=== PATIENT | female | born 1940 | race Caucasian/White ===

== ENCOUNTER 2017-01-28 08:04 | Observation (INO) | payer OTHER ==
[~2017-01-28] VITALS: Ht 152.4 cm; Wt 51.6 kg
--- NOTE | ~2017-01-28 | P ---
[facility] [place] [address] PROCEDURE REPORT Name: DALTON RIVERS Room #: 202-P [facility] Yanely Neff#: [id number] Admission: 01/28/17 Attend Phys: Robert Rosario MD Discharge: 01/29/17 Date of : 40 Report #: [id number] THIS REPORT FOR: //name// CC: FAM unknown Goran Rosario DATE OF SERVICE: 01/28/2017 PREOPERATIVE DIAGNOSIS: Nonischemic cardiomyopathy. POSTOPERATIVE DIAGNOSIS: Nonischemic cardiomyopathy. HISTORY OF PRESENT ILLNESS: The patient is a 76-year-old with a longstanding history of a nonischemic cardiomyopathy likely secondary to chemotherapy for breast cancer. She has class 2 heart failure symptoms and a left bundle-branch block. She is here for biventricular ICD implantation. ANESTHESIA: The patient with MAC anesthesia with no anesthesia-related complications. DESCRIPTION OF PROCEDURE: The patient underwent informed consent. We discussed the details of the procedure including the risks, which include but not limited to bleeding, infection, vascular damage, cardiac perforation, pneumothorax. She understood these risks and is willing to proceed. She was brought to the EP laboratory in fasting and sedated state, prepped and draped in sterile fashion underwent venogram showing patency of the left axillary vein and she received IV antibiotics prior to the initiation of the procedure. Next, I injected 20 mL of lidocaine below the level of left clavicle, incision was made. Pocket was created in prepectoral fashion. Access was obtained 3 times to the left axillary vein using extrathoracic approach sheaths were positioned using the modified Seldinger technique. Next, a lead was placed into the right atrial appendage and right ventricular apex, both with adequate pacing and sensing thresholds. This was done under fluoroscopy. The leads were sutured to the prepectoral fascia. Next, a short sheath was placed into the axillary vein and the coronary sinus sheath was placed into the right atrium. Of note, I initially subselected the middle cardiac vein and I could see that there was a CS proper that was quite vertical. I tried using an inner 90 degree sheath to engage this, but this was unsuccessful. I therefore was able to obtain access once again with my Wholey wire. However, I could not advance the sheath into the coronary sinus. As such, I removed the Wholey wire and placed a 5-Greek diagnostic EP catheter via the sheath into the CS proper. This gave me enough support to advance my sheath into the coronary sinus proper. Next, I performed a venogram of the coronary sinus and showed that there was a [facility] [address] [place] [address] PROCEDURE REPORT Name: [facility] Room #: 202-P [facility] Yanely MOrlandoR.#: [id number] Admission: 01/28/17 Attend Phys: Robert Rosario MD Discharge: 01/29/17 Date of : 40 Report #: [id number] nice posterolateral branch. This again was somewhat challenging to advance the lead into. I used a senior civil engineer wire and this again allowed me to advance my lead into the vessel. I split the sheath and the lead remained in position with adequate pacing thresholds. The lead was sutured to the prepectoral fascia. The device was connected to the leads and the pocket was irrigated with vancomycin solution. The pocket was closed in 3 layers and surgical glue was placed to the outer skin layer. The patient awoke neurologically and hemodynamically intact. No complications and no significant bleeding. Implanted device was a [employer] model # [id number], serial #[id number] with an atrial lead that was [employer], model #2088TC, 46 cm, serial #[id number]. The atrial lead demonstrated a P-wave at 2.3 millivolts, pacing impedance of 595 ohms, the pacing threshold 1.1 volt at 0.5 milliseconds. The RV lead was a [employer] model #7122Q, 52 cm. This was a single coil lead. The serial number was [id number]. This lead demonstrated an R-wave of 10.2 millivolts, pacing impedance of 614 ohms, the pacing threshold of 0.75 volts at 0.5 milliseconds. The LV lead was a [employer] model #1458Q, 86 cm. This was a quadripolar lead, serial #[id number]. This lead demonstrated a pacing impedance of 830 ohms, the pacing threshold was 0.75 volts at 0.5 milliseconds. This was in the D1-M2 pacing configuration also known as vector 1. This allowed for the most basal pacing configuration with the best pacing threshold and when BiV optimized, this resulted in the most narrowing of the QRS complex from 160-170 milliseconds down to 120 milliseconds. The device was programmed to the DDD 60-120 mode. The VT zone was set at 180-220 with 3 rounds of burst followed by 3 rounds of ramp followed by max output shocks. The VF zone was set at greater than 220 beats per minute with ATP while charging followed by max output shocks. CONCLUSIONS: 1. Successful Bi-V ICD implantation. 2. Satisfactory atrial, right ventricular and left ventricular pacing and sensing thresholds. <ELECTRONICALLY SIGNED> By: Robert Rosario MD 01/31/17 1105 1241 192 Robert Rosario MD /neema
--- NOTE | ~2017-01-28 | D ---
[facility] [place] [address] DISCHARGE SUMMARY Name: DALTON RIVERS Room #: 202-P [facility] Yanely Neff#: [id number] Admission: 01/28/17 Attend Phys: Robert Rosario MD Discharge: 01/29/17 Date of : 40 Report #: [id number] THIS REPORT FOR: //name// CC: FAM unknown Goran Rosario DISCHARGE DIAGNOSIS: Nonischemic cardiomyopathy. PROCEDURES PERFORMED: Bi-V ICD implantation. HISTORY: The patient is a 76-year-old with a history of a nonischemic cardiomyopathy and left bundle branch block. Her nonischemic cardiomyopathy is thought to be secondary to prior chemotherapy for breast cancer. She has class 2 heart failure symptoms. She is here for elective Bi-V ICD implantation for primary prevention of sudden cardiac . Her Bi-V ICD implantation was straightforward and without incident and she was monitored in the hospital overnight. HOSPITAL COURSE: The patient was monitored overnight. There were no issues. The following day, chest x-ray showed stable lead position with no pneumothorax. A device interrogation showed stable device functions. Her incision looked to be healing nicely with some mild bruising. She denied any chest pain or shortness of breath. She denied any PND or orthopnea. PHYSICAL EXAMINATION: VITAL SIGNS: Stable. GENERAL: No acute distress. CARDIOVASCULAR: Regular rate and rhythm. LUNGS: Clear bilaterally. ABDOMEN: Soft, nontender. EXTREMITIES: No edema and her incision showed some mild ecchymosis, but no hematoma. As such, she was deemed stable for discharge to home with discharge instructions reviewed. She is to continue on her same home medications and follow up for an incision check in 7-10 days. <ELECTRONICALLY SIGNED> By: Robert Rosario MD 01/31/17 1105 0819 0829 Robert Rosario MD /nt
[2017-01-28] MEDS ORDERED: OMEPRAZOLE 20 M20 M1 PO (08:20)
[2017-01-28] MEDS ORDERED: PULMICORT FLE180 MCG IH (08:21)
[2017-01-28] MEDS ORDERED: NASONEX17 GM NASAL (08:22)
[2017-01-28] MEDS ORDERED: DYMISTA NASAL S23 GM NS (08:24)
[2017-01-28] MEDS ORDERED: PRAVACHOL 20 MG20 M1 PO (08:25)
[2017-01-28] MEDS ORDERED: ALDACTONE25 MG PO (08:25)
[2017-01-28] MEDS ORDERED: COREG6.25 MG PO (08:25)
[2017-01-28] MEDS ORDERED: XOPENEX HF1 UDINHALE IH (08:26)
[2017-01-28] MEDS ORDERED: MUCINEX TA600 MG/TA2 PO (08:27)
[2017-01-28] MEDS ORDERED: ALLEGRA ALLERG180 MG PO (08:27)
[2017-01-28] MEDS ORDERED: FLONASE 0.05%50 MCG NASAL (08:29)
[2017-01-28 08:44] VITALS: BP 125/55
[2017-01-28 08:46] LABS: ABSOLUTE NEUTROPHILS 4.3 thou/uL (1.4-8.2); BASOPHILS 1.2 % (0.0-2.0); EOSINOPHILS 2.1 % (0.0-3.0); HEMATOCRIT 44.2 % (37.0-47.0); HEMOGLOBIN 14.7 gm/dL (12.0-15.0); LYMPHOCYTES 29.8 % (24.0-44.0); MANUAL DIFF NO; MCHC 33.3 g/dL (28.0-37.0); MCV 87.2 fL (80.0-100.0); MONOCYTES 6.6 % (1.0-8.0); PLATELET COUNT 205 thou/uL (150-400); POLYS 60.3 % (36.0-66.0); RBC 5.07 mil/uL (4.20-5.00); RDW 14.3 % (10.5-14.5); WBC 7.2 thou/uL (4.0-11.0)
[2017-01-28 08:54] LABS: CALCIUM 9.4 mg/dL (8.5-10.1); CREATININE 0.8 mg/dL (0.6-1.0); POTASSIUM 3.7 mmol/L (3.5-5.1)
[2017-01-28 08:59] LABS: PROTIME 9.9 Seconds (9.3-11.4)
[2017-01-28 09:00] LABS: ALBUMIN 3.9 g/dL (3.4-5.0); TOTAL BILIRUBIN 0.6 mg/dL (<0.1-1.0); TOTAL PROTEIN 6.8 g/dL (6.4-8.2)
[2017-01-28 16:15] VITALS: BP 121/56
[2017-01-28 19:36] VITALS: BP 104/46
[2017-01-28 23:33] VITALS: BP 101/49
[2017-01-29 03:39] VITALS: BP 101/45
[2017-01-29 08:52] VITALS: BP 101/45
== END 2017-01-29 10:24 | disposition home or self-care (01) ==
LOC: CATH 08:04 → 2N 13:44
PROVIDERS: Internal Medicine Cardiovascular Disease
DX: I42.9 Cardiomyopathy, unspecified (principal); I44.7 Left bundle-branch block, unspecified; R55 Syncope and collapse; I47.2 Ventricular tachycardia; I50.22 Chronic systolic (congestive) heart failure; E78.5 Hyperlipidemia, unspecified

== ENCOUNTER 2017-02-02 15:29 | Observation (INO) | payer OTHER ==
[~2017-02-02] VITALS: Ht 152.4 cm; Wt 44.9 kg
--- NOTE | ~2017-02-02 | EKG ---
[place] [address] [email or web address] [address] ELECTROCARDIOGRAM REPORT Name: DALTON RIVERS Room #: 204-P [facility]#: [id number] Admission: 02/02/17 Attend Phys: Miles Myrick DO Discharge: 02/03/17 Date of : 40 Report #: [id number] THIS REPORT FOR: //name// [facility] ED Test Date: 2017-02-02 Test Time: 15:38:53 Pat Name: DALTON RIVERS Department: Room: [facility] Gender: F Configuration Manager: [email or web address] : 1940 Requested By: Rio Flores Order Number: [id number] MD: Satya Fraga Measurements Intervals [place] Rate: 75 P: 53 UT: 126 QRS: 189 QRSD: 131 T: 249 QT: 389 QTc: 435 Interpretive Statements Atrial-sensed ventricular-paced rhythm No further analysis attempted due to paced rhythm No previous ECG available for comparison Electronically Signed On 02-04-2017 13:36:39 CDT by Satya Fraga [email or web address] <ELECTRONICALLY SIGNED> By: Satya Fraga MD, [facility] 02/04/17 1336 1538 1538 Satya Fraga MD, [facility] /EPI
[~2017-02-02 15:29] MED LIST: ALDACTONE25 MG PO; ALLEGRA ALLERG180 MG PO; COREG6.25 MG PO; DYMISTA NASAL S23 GM NS; FLONASE 0.05%50 MCG NASAL; MUCINEX TA600 MG/TA2 PO; NASONEX17 GM NASAL; OMEPRAZOLE 20 M20 M1 PO; PRAVACHOL 20 MG20 M1 PO; PULMICORT FLE180 MCG IH; XOPENEX HF1 UDINHALE IH
[2017-02-02 15:30] VITALS: BP 137/79
[2017-02-02 15:47] LABS: ABSOLUTE NEUTROPHILS 6.4 thou/uL (1.4-8.2); BASOPHILS 0.8 % (0.0-2.0); EOSINOPHILS 2.7 % (0.0-3.0); HEMATOCRIT 44.9 % (37.0-47.0); HEMOGLOBIN 15.3 gm/dL (12.0-15.0); LYMPHOCYTES 26.5 % (24.0-44.0); MCH 29.3 pg (26.0-34.0); MCHC 34.1 g/dL (28.0-37.0); MCV 86.1 fL (80.0-100.0); MONOCYTES 7.7 % (1.0-8.0); PLATELET COUNT 139 thou/uL (150-400); POLYS 62.3 % (36.0-66.0); RBC 5.21 mil/uL (4.20-5.00); RDW 14.4 % (10.5-14.5); WBC 10.3 thou/uL (4.0-11.0)
[2017-02-02 15:49] LABS: MANUAL DIFF NO
[2017-02-02] MEDS ORDERED: VITAMIN D3400 UNIT PO (15:56)
[2017-02-02 15:57] LABS: ANION GAP 7 mmol/L (7-16); BUN 19 mg/dL (7-18); CALCIUM 10.1 mg/dL (8.5-10.1); CHLORIDE 101 mmol/L (98-107); CO2 28 mmol/L (21-32); CREATININE 0.9 mg/dL (0.6-1.0); GLUCOSE 108 mg/dL (74-106); POTASSIUM 4.3 mmol/L (3.5-5.1); SODIUM 136 mmol/L (136-145)
[2017-02-02 16:06] LABS: TROPONIN-I < 0.04 ng/mL (<0.04-0.07)
[2017-02-02 17:13] LABS: URINE BILIRUBIN NEGATIVE (Negative); URINE BLOOD 1+ (Negative); URINE COLOR YELLOW; URINE GLUCOSE-RANDOM* NEGATIVE (Negative); URINE KETONES NEGATIVE (Negative); URINE PROTEIN (DIPSTICK) NEGATIVE (Negative); URINE SPECIFIC GRAVITY <= 1.005 (1.003-1.035); URINE UROBILINOGEN 0.2 E.U./dl (0.2-1.0)
[2017-02-02 17:15] LABS: URINE LEUKOCYTES-REFLEX TRACE (Negative)
[2017-02-02 17:21] LABS: SQUAMOUS 0-3 Few /LPF (0-3); URINE RBC 0-2 Rare /HPF (0-2); URINE WBC-REFLEX 0-5 Rare /HPF (0-5)
[2017-02-02 17:22] LABS: CASTS None Seen /LPF (None Seen); CRYSTALS None Seen /LPF (None Seen)
[2017-02-02 18:25] VITALS: BP 95/44
[2017-02-02 18:49] VITALS: BP 94/56
[2017-02-02 18:59] VITALS: BP 121/48
[2017-02-02] MEDS ORDERED: IBUPROFEN 200200 M1 PO (19:27)
[2017-02-02 23:35] VITALS: BP 114/49
[2017-02-03 03:38] VITALS: BP 100/37
[2017-02-03 03:42] VITALS: BP 108/48
[2017-02-03 03:50] LABS: ABSOLUTE NEUTROPHILS 4.3 thou/uL (1.4-8.2); BASOPHILS 0.8 % (0.0-2.0); EOSINOPHILS 3.2 % (0.0-3.0); HEMATOCRIT 43.3 % (37.0-47.0); HEMOGLOBIN 14.4 gm/dL (12.0-15.0); LYMPHOCYTES 32.5 % (24.0-44.0); MCH 28.6 pg (26.0-34.0); MCHC 33.1 g/dL (28.0-37.0); MCV 86.3 fL (80.0-100.0); MONOCYTES 9.2 % (1.0-8.0); PLATELET COUNT 128 thou/uL (150-400); POLYS 54.3 % (36.0-66.0); RBC 5.02 mil/uL (4.20-5.00); RDW 14.3 % (10.5-14.5)
[2017-02-03 03:51] LABS: MANUAL DIFF NO
[2017-02-03 04:04] LABS: CALCIUM 9.6 mg/dL (8.5-10.1); CREATININE 0.9 mg/dL (0.6-1.0); POTASSIUM 4.2 mmol/L (3.5-5.1)
[2017-02-03 07:25] VITALS: BP 114/35
[2017-02-03 11:45] VITALS: BP 101/44
[2017-02-03 11:53] VITALS: BP 114/35
[2017-02-03 12:40] VITALS: BP 114/35
== END 2017-02-03 12:35 | disposition home or self-care (01) ==
LOC: ER 15:29 → EROBS 17:40 → 2N 18:45
PROVIDERS: Emergency Medicine; Internal Medicine Geriatric Medicine
DX: R07.89 Other chest pain (principal); I25.5 Ischemic cardiomyopathy; I50.9 Heart failure, unspecified; E78.5 Hyperlipidemia, unspecified; K21.9 Gastro-esophageal reflux disease without esophagitis; Z95.810 Presence of automatic (implantable) cardiac defibrillator; Z79.899 Other long term (current) drug therapy; Z85.3 Personal history of malignant neoplasm of breast

== ENCOUNTER → 2021-01-17 | Outpatient (CLI) | payer OTHER ==
[~2021-01-17] MED LIST changes: +AZELASTINE205.5 MCG/ NARES; +ELIQUIS5 MG PO; +ENTRESTO 49 MG1 EACH PO; +IBUPROFEN 200200 M1 PO; +PACERONE100 MG PO; +VITAMIN D3400 UNIT PO
== END ==
LOC: SJCVC 10:12
PROVIDERS: ATTEND Internal Medicine Cardiovascular Disease
DX: R94.31 Abnormal electrocardiogram [ECG] [EKG] (principal); I45.4 Nonspecific intraventricular block; I42.8 Other cardiomyopathies; I48.0 Paroxysmal atrial fibrillation; I50.22 Chronic systolic (congestive) heart failure; E78.5 Hyperlipidemia, unspecified; Z98.890 Other specified postprocedural states; Z88.2 Allergy status to sulfonamides; Z88.8 Allergy status to other drugs, medicaments and biological substances; Z95.810 Presence of automatic (implantable) cardiac defibrillator; Z79.899 Other long term (current) drug therapy; Z85.3 Personal history of malignant neoplasm of breast; Z82.49 Family history of ischemic heart disease and other diseases of the circulatory system